=== PATIENT | female | born 1985 | race American Indian/Alaskan Native ===

== ENCOUNTER 2018-01-03 15:08 | Emergency (ER) | payer SELFPAY ==
[2018-01-03 15:35] VITALS: BP 120/84
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
== END 2018-01-03 17:10 | disposition home or self-care (01) ==
LOC: ED 15:08
DX: S20.212A Contusion of left front wall of thorax, initial encounter (principal); S40.022A Contusion of left upper arm, initial encounter; S80.12XA Contusion of left lower leg, initial encounter; V49.49XA Driver injured in collision with other motor vehicles in traffic accident, initial encounter; Z87.891 Personal history of nicotine dependence; Y93.89 Activity, other specified; Y92.89 Other specified places as the place of occurrence of the external cause; Y99.8 Other external cause status
CPT/HCPCS: 99282

== ENCOUNTER 2018-03-26 11:38 | Emergency (ER) | payer SELFPAY ==
[2018-03-26 11:48] VITALS: BP 144/55
[2018-03-26 12:45] LABS: HCG Qualitative,Urine Negative (Negative)
[2018-03-26 12:48] LABS: Bacteria,Urine 1+ /HPF (Negative); Bilirubin,Urine NEG (Negative); Blood,Urine NEG (Negative); Color,Urine Yellow (Yellow); Mucus,Urine 2+ /HPF; Protein,Urine <15 mg/dL mg/dL (Negative); Urobilinogen,Urine < 2.0 mg/dL (<2.0)
--- NOTE | 2018-03-26 13:52 | Emergency Department Report ---
ED Abdominal Pain HPI - General Chief Complaint: Abdominal Pain Stated Complaint: THROAT/STOMACH PAIN Time Seen by Provider: 03/26/18 13:32 Source: patient Mode of arrival: Ambulatory Limitations: No Limitations - History of Present Illness Initial Comments: 32 yo female with no significant past medical or surgical history presents to the hospital complaining of sore throat and upper abdominal pain for 2-3 days. She is having intermittent upper abdominal cramping. Positive nausea without vomiting. No alleviating factors reported. Pain was 5/10 in the waiting room but has spontaneously resolved. Patient denies vaginal discharge, vaginal bleeding, dysuria, urinary frequency, vomiting, diarrhea, melena, hematochezia, or hematemesis. She does complains of some hoarseness, discomfort with swallowing, but no difficulty breathing. Patient just moved in a new apartment is concerned about mold exposure. PMD is 3 hours away - Related Data Previous Rx's Medication Instructions Recorded Last Taken Type Cyclobenzaprine [Flexeril] 10 mg PO TID PRN #30 tablet 01/03/18 Unknown Rx Naproxen [Naprosyn] 500 mg PO BID #14 tablet 01/03/18 Unknown Rx Mag Hydrox/Aluminum Hyd/Simeth 20 ml PO QID PRN #1 bottle 03/26/18 Unknown Rx [Maalox Advanced Suspension] Omeprazole Magnesium [PriLOSEC Otc] 20 mg PO BID #30 tab 03/26/18 Unknown Rx Ondansetron [Zofran Odt] 4 mg PO Q8HR PRN #20 tab.rapdis 03/26/18 Unknown Rx traMADol [Ultram 50 MG tab] 50 mg PO Q6HR PRN #20 tablet 03/26/18 Unknown Rx Allergies Allergy/AdvReac Type Severity Reaction Status Date / Time No Known Allergies Allergy Unverified 01/03/18 15:29 ED Review of Systems ROS: Stated complaint: THROAT/STOMACH PAIN Other details as noted in HPI Comment: All other systems reviewed and negative ED Past Medical Hx - Past Medical History Previous Medical History?: No - Surgical History Past Surgical History?: No - Social History Smoking Status: Current Every Day Smoker Substance Use Type: None - Medications Home Medications: Home Medications Medication Instructions Recorded Confirmed Last Taken Type Cyclobenzaprine [Flexeril] 10 mg PO TID PRN #30 tablet 01/03/18 Unknown Rx Naproxen [Naprosyn] 500 mg PO BID #14 tablet 01/03/18 Unknown Rx Mag Hydrox/Aluminum Hyd/Simeth 20 ml PO QID PRN #1 bottle 03/26/18 Unknown Rx [Maalox Advanced Suspension] Omeprazole Magnesium [PriLOSEC Otc] 20 mg PO BID #30 tab 03/26/18 Unknown Rx Ondansetron [Zofran Odt] 4 mg PO Q8HR PRN #20 tab.rapdis 03/26/18 Unknown Rx traMADol [Ultram 50 MG tab] 50 mg PO Q6HR PRN #20 tablet 03/26/18 Unknown Rx ED Physical Exam - General Limitations: No Limitations - Other Other exam information: General: No limitations, patient is alert in no acute distress Head exam: Atraumatic, normocephalic Eyes exam: Normal appearance, pupils equal reactive to light, extraocular movements intact ENT: Moist mucous membrane, normal oropharynx no erythema or exudate, no tender lymphadenopathy Neck exam: Normal inspection, full range of motion, no meningismus nontender Respiratory exam: Clear to auscultation bilateral, no wheezes, rales, crackles Cardiovascular: Normal rate and rhythm, normal heart sounds Abdomen: Soft, nondistended, and nontender, with normal bowel sounds, no rebound, or guarding Extremity: Full range of motion normal inspection no deformity Back: Normal Inspection, full range of motion, no tenderness Neurologic: Alert, oriented x3, cranial nerves intact, no motor or sensory deficit Psychiatric: normal affect, normal mood Skin: Warm, dry, intact ED Course Vital Signs 03/26/18 11:45 Temperature 98.3 F Pulse Rate 74 Respiratory 16 Rate Blood Pressure 144/55 O2 Sat by Pulse 97 Oximetry ED Medical Decision Making - Medical Decision Making Intermittent epigastric pain Nontender on exam Will be given meds for gastritis and nausea Sore throat No exudates, lymphadenopathy, or fever Diagnosis of laryngitis Follow-up will be encouraged with a physician UA has leukocyte esterase and 9 white cells. Patient denies urinary symptoms and therefore will be treated. Nitrites negative - Differential Diagnosis biliary colic, pancreatitis, GERD, gastritis, pharyngitis, laryngitis Critical Care Time: No Critical care attestation.: If time is entered above; I have spent that time in minutes in the direct care of this critically ill patient, excluding procedure time. ED Disposition Clinical Impression: Epigastric pain, Laryngitis Disposition: DC- TO HOME OR SELFCARE Is pt being admited?: No Does the pt Need Aspirin: No Condition: Stable Instructions: Gastritis (ED), Laryngitis (ED) Additional Instructions: Take the medication as prescribed. Follow up with your doctor. Return if symptoms worsen as indicated by your discharge instructions Prescriptions: Mag Hydrox/Aluminum Hyd/Simeth [Maalox Advanced Suspension] 20 ml PO QID PRN #1 bottle PRN Reason: Indigestion Omeprazole Magnesium [PriLOSEC Otc] 20 mg PO BID #30 tab Ondansetron [Zofran Odt] 4 mg PO Q8HR PRN #20 tab.rapdis PRN Reason: Nausea And Vomiting traMADol [Ultram 50 MG tab] 50 mg PO Q6HR PRN #20 tablet PRN Reason: Pain Referrals: [facility] [Provider Group] - 3-5 Days (primary care clinic) MIMI VASQUEZ MD [Staff Physician] - 3-5 Days (primary care doctor) HARMAN MANCUSO MD [Staff Physician] - 3-5 Days (primary care doctor) Time of Disposition: 13:57
== END 2018-03-26 14:17 | disposition home or self-care (01) ==
LOC: ED 11:38
DX: J04.0 Acute laryngitis (principal); R10.13 Epigastric pain; R11.0 Nausea; F17.200 Nicotine dependence, unspecified, uncomplicated
CPT/HCPCS: 81001; 81025; 99283